=== PATIENT | male | born 1970 ===

== ENCOUNTER 2019-01-23 09:39 | Emergency (ER) | payer OTHER ==
[~2019-01-23] VITALS: Ht 172.7 cm; Wt 63.5 kg
== END 2019-01-23 10:55 | disposition home or self-care (01) ==
LOC: ER 09:39
DX: S41.111A Laceration without foreign body of right upper arm, initial encounter (principal); W45.8XXA Other foreign body or object entering through skin, initial encounter; Y93.89 Activity, other specified; Y92.89 Other specified places as the place of occurrence of the external cause; Y99.8 Other external cause status